=== PATIENT | female | born 1965 | race Caucasian/White ===

== ENCOUNTER 2017-03-16 23:20 | Emergency (ER) | payer OTHER ==
[~2017-03-16] VITALS: Ht 154.9 cm; Wt 71.0 kg
[2017-03-16] MEDS ORDERED: EMTR1TAB12 PO (23:33)
[2017-03-16] MEDS ORDERED: DOLU50TA PO (23:33)
[2017-03-17 00:49] VITALS: BP 112/69
== END 2017-03-17 00:51 | disposition home or self-care (01) ==
LOC: EMS 23:21
DX: M25.511 Pain in right shoulder (principal)
CPT/HCPCS: 29105; 99283